=== PATIENT | female | born 1965 | race Caucasian/White ===

== ENCOUNTER → 2022-06-04 | Outpatient (CLI) | payer BC, SELFPAY | END | disposition home or self-care (01) | LOC: LABSPEC 15:09 | PROVIDERS: PCP Family Medicine; Referring Provider Otolaryngology; Visit Provider Otolaryngology | DX: J01.90 Acute sinusitis, unspecified (principal) | CPT/HCPCS: 87070; 87077; 87186; 87205 ==

== ENCOUNTER → 2023-06-01 | Outpatient (CLI) | payer BC, SELFPAY ==
--- NOTE | 2023-06-01 | ASPS_PTH ---
PATIENT: LUPILLO DOVER LOC: [facility] #:[id number] AGE/SX: 57/F ROOM: RE06/01/[address]: Dr. John Cornelius MD : 1965 BED: DIS: 06/01/2023 SPEC #: [id number] RECD: 06/02/23 08:09 STATUS: TERESA STEVEN #: [id number] MADAI: 06/01/23 00:[address]: John Cornelius DEPT: CYTOLOGY RECD BY: Irma Fletcher ENTERED: 06/02/23 08:09 SP TYPE: ASPIRATION OTHR DR: Dr. Melvin Ruiz MD Tissues: A - Thyroid gland, NOS Procedures: Special Stain Group II Cytology Other HEADER OPERATION: Fine needle aspiration right superior thyroid PRE-OP DIAGNOSIS: Abnormal thyroid ultrasound TISSUE SUBMITTED: Right superior thyroid x12 slides DIAGNOSIS CYTOLOGY Right superior thyroid nodule, fine needle aspiration (smears): Consistent with benign follicular nodule, [place] Category II. See comment. AM:blanca 06/03/2023 COMMENT The [place] System for thyroid diagnostic categorization was used in the evaluation of this case. Adequate for evaluation. CYTOLOGY STUDY Slides are reviewed. CYTOLOGY GROSS Received are 12 smears labeled with the patient's name and designated per the requisition as right superior thyroid. Submitted for staining. / blanca 06/02/2023 TC:5 CPT: 72406
== END | disposition home or self-care (01) ==
PROVIDERS: PCP Family Medicine; Visit Provider Surgery
DX: R93.89 Abnormal findings on diagnostic imaging of other specified body structures (principal)
CPT/HCPCS: 88161; 88313